=== PATIENT | female | born 1960 | race Caucasian/White ===

== ENCOUNTER → 2017-07-09 22:00 | Outpatient (CLI) | payer BC ==
[2012-05-09 07:26] VITALS: BMI 27.5
== END | disposition home or self-care (01) ==
LOC: D.MAMMO 13:00
DX: Z12.31 Encounter for screening mammogram for malignant neoplasm of breast (principal)

== ENCOUNTER 2018-09-13 19:00 | Outpatient (CLI) | payer BC ==
[2012-05-09 07:26] VITALS: BMI 27.5
== END 2018-09-13 23:59 | disposition home or self-care (01) ==
LOC: D.MAMMO 19:00
PROVIDERS: ATTEND Clinical Nurse Specialist Family Health
DX: Z12.31 Encounter for screening mammogram for malignant neoplasm of breast (principal)